=== PATIENT | male | born 2005 | race Two or more races ===

== ENCOUNTER → 2025-01-06 | Outpatient (CLI) | payer MEDICAID, SELFPAY ==
--- NOTE | 2025-01-06 10:10 | XR_ITS ---
EXAMINATION: Ankle, right 3 views . Technique: Ankle AP, oblique, lateral 3 views Date and time of exam: January 06, 2025 1051 hours INDICATIONS: Injury to the ankle 2 weeks ago, ankle pain FINDINGS: No acute fracture No dislocation IMPRESSION: No acute fracture
== END | disposition home or self-care (01) ==
DX: S93.401A Sprain of unspecified ligament of right ankle, initial encounter (principal); X58.XXXA Exposure to other specified factors, initial encounter
CPT/HCPCS: 73610